=== PATIENT | female | born 1985 | race Caucasian/White ===

== ENCOUNTER 2023-07-06 06:09 | Emergency (ER) | payer OTHER ==
[2023-07-06 06:17] VITALS: TEMP 97.3
--- NOTE | 2023-07-06 06:35 | ERPHSYRPT ---
- History of Present Illness Time Seen by Provider: 07/06/23 06:27 Source: patient Exam Limitations: no limitations Patient Subjective Stated Complaint: left earache Triage Nursing Assessment: pt ambulated into ER without diff, with 2L n/c on that she wears all the time. Pt c/o left ear pain which started on 07/04/23. Left ear canal is red, pt c/o that the pain shoots down the left side of her neck and it hurts to swallow or chew. Physician History: Pt c/o left earache since 2 days ago; denies fever, vomiting, sore throat, runny nose. Allergies/Adverse Reactions: lamotrigine [From Lamictal] Adverse Reaction (Intermediate, Verified 07/06/23 06:25) Home Medications: Albuterol 8 gm Mdi Hfa [Ventolin Hfa MDI] 1 puff IH Q4H PRN PRN 07/06/23 [History] Aripiprazole 10 mg [Abilify 10 MG] 10 mg PO HS 07/06/23 [History] Atorvastatin Calcium 80 mg PO HS 07/06/23 [History] Duloxetine HCl 120 mg PO HS 07/06/23 [History] Furosemide [Lasix] 40 mg PO HS 07/06/23 [History] Gabapentin [Neurontin] 300 mg PO HS 07/06/23 [History] Levocetirizine Dihydrochloride 5 mg PO HS 07/06/23 [History] Metformin HCl 500 mg [Glucophage 500 MG] 1,000 mg PO HS 07/06/23 [History] Montelukast Sodium [Singulair] 1 tab PO HS 07/06/23 [History] atenoloL [Atenolol] 25 mg PO HS 07/06/23 [History] Hx Tetanus, Diphtheria Vaccination/Date Given: Yes Hx Influenza Vaccination/Date Given: Yes Hx Pneumococcal Vaccination/Date Given: No Immunizations Up to Date: Yes Travel Risk - International Travel Have you traveled outside of the country in past 3 weeks: No - Coronavirus Screening Are you exhibiting any of the following symptoms?: No Close contact with a COVID-19 positive Pt in past 14-21 Days: No - Vaccine Status Have you recieved a Covid-19 vaccination: Yes 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 - Review of Systems Constitutional: No Fever Ears, Nose, & Throat: Ear Pain, No Nose Discharge, No Throat Pain Abdominal/Gastrointestinal: No Vomiting - Past Medical History Pertinent Past Medical History: Yes Neurological History: Peripheral Neuropathy ENT History: No Pertinent History Cardiac History: High Cholesterol Respiratory History: Asthma, COPD Endocrine Medical History: Diabetes Type II Musculoskeletal History: Fractures History: No Pertinent History Psycho-Social History: Anxiety, Depression Female Reproductive Disorders: No Pertinent History Other Medical History: wear 2L n/c at home at all times. - Past Surgical History Past Surgical History: Yes Neuro Surgical History: No Pertinent History Cardiac: No Pertinent History Respiratory: No Pertinent History Gastrointestinal: Appendectomy Genitourinary: Other Musculoskeletal: Other Female Surgical History: Dilation & Curettage, Section, Tubal Ligation Other Surgical History: bladder mesh. carpal tunnel x4 - Social History Smoking Status: Former smoker Exposure to second hand smoke: Yes Drug Use: none Patient Lives Alone: No - Female History Hx Last Menstrual Period: 06/11/23 Hx Now: No - Nursing Vital Signs Nursing Vital Signs: Initial Vital Signs Temperature 97.3 F 07/06/23 06:14 Pulse Rate 83 07/06/23 06:14 Respiratory Rate 22 07/06/23 06:14 Blood Pressure 120/81 07/06/23 06:14 O2 Sat by Pulse Oximetry 96 07/06/23 06:14 Pain Scale Pain Intensity 8 - Physical Exam General Appearance: alert Eye Exam: bilateral eye: PERRL Ear Exam: left ear: swelling (left EAC mildly edematous and tender), bilateral ear: TM normal Nasal Exam: No discharge Throat Exam: pharynx normal Neck Exam: normal inspection Cardiovascular/Respiratory Exam: normal breath sounds, heart sounds normal Skin Exam: warm, dry SpO2 Interpretation: normal SpO2: 96 O2 Delivery: Room Air - Course Nursing assessment & vital signs reviewed: Yes Ordered Tests: Medication Summary Generic Name Dose Route Start Last Admin Trade Name Freq PRN Reason Stop Dose Admin Hydrocodone Bitart/Acetaminophen 2 tab 07/06/23 06:47 Hydrocodone/Apap 5/325 1 Tab Tablet PO 07/06/23 06:48 STAT ONE Hydrocodone Bitart/Acetaminophen 2 tab 07/06/23 06:47 Hydrocodone/Apap 5/325 1 Tab Tablet PO 07/06/23 06:48 SENT HOME W/ PATIENT ONE Neomycin/Polymyxin/Hydrocortisone 0 ml 07/06/23 10:00 07/06/23 06:41 Neomy Sulf/Polymyx B Sulf/Hc 10 Ml Otic Suspension OT 08/05/23 09:59 10 ml BID ROSA Administration - Progress Progress Note: 07/06/23 06:54 Ear wick placed in the left EAC without difficulty. Counseled pt/family regarding: diagnosis, need for follow-up - Departure Departure Disposition: Home Clinical Impression: External otitis of left ear Condition: Stable Critical Care Time: No Referrals: ZEB MUÑOZ PA [Primary Care Provider] - Follow up/PCP as directed Instructions: Outer Ear Infection (DC) Additional Instructions: Follow up with private doctor tomorrow. Place 4 drops of cortisporin in left ear twice daily for the next 10 days. Take ibuprofen or tylenol as needed for pain.
[2023-07-06] MEDS ORDERED: CORTISPORIN EAR DROPS 10 ML SUSPENSION OT ONE (06:40)
[2023-07-06] MEDS ORDERED: NORCO 5/325 MG PO ONE ×2 (06:47)
[2023-07-06] MEDS ORDERED: NORCO 5/325 MG ONE (06:51)
[2023-07-06 07:01] VITALS: BP 106/81; PULSE 85; RESP 20; O2SAT 97
[2023-07-06] MEDS ORDERED: CORTISPORIN EAR DROPS 10 ML SUSPENSION OT SCH (10:00)
== END 2023-07-06 07:09 | disposition home or self-care (01) ==
LOC: ED 06:09
DX: H60.92 Unspecified otitis externa, left ear (principal); H92.02 Otalgia, left ear; E78.5 Hyperlipidemia, unspecified; E11.42 Type 2 diabetes mellitus with diabetic polyneuropathy; Z79.84 Long term (current) use of oral hypoglycemic drugs; Z79.899 Other long term (current) drug therapy
CPT/HCPCS: 99281; A9270-GY

== ENCOUNTER 2024-07-20 10:03 | Emergency (ER) | payer OTHER ==
[2024-07-20 10:28] VITALS: RESP 18; TEMP 98; O2SAT 96
[2024-07-20 13:20] VITALS: BP 100/83; PULSE 105
[2024-07-20] MEDS ORDERED: ROCEPHIN 2 GM/100 ML NACL 2 GM/100 ML IVPB IV ONE (13:23)
[2024-07-20] MEDS: ROCEPHIN 2 GM/100 ML NACL 2 GM/100 ML IVPB IV ONE (13:25)
[2024-07-20] MEDS: DAPTOmycin 600 MG in Sodium Chloride Flush 30 ML*** 12 ML IV ONE (14:12)
--- NOTE | 2024-07-20 14:41 | ERPHSYRPT ---
- History of Present Illness Time Seen by Provider: 07/20/24 10:43 Source: patient Exam Limitations: no limitations Patient Subjective Stated Complaint: "I HAVE AN INFECTION IN LEFT FOOT, SEEING DR. CARUSO FOR THAT. I HAD A PICC LINE PLACED WEDNESDAY HERE FOR IV ANTIBIOTICS. I WOKE UP THIS MORNING AND MY PICC LINE WAS PULLED OUT SOME, MYDRESSING HAD PULLED DOWN. I CALLED DR. CARUSO AND HE SAID TO COME HERE AND HAVE IT CHECKED". Triage Nursing Assessment: PT. PRESENTS TO ER A&OX4, SKIN P/W/D, WOUND HEALING SANDAL ON LEFT FOOT, PICC LINE IN RT. UPPER ARM, DRESSING LOOSE, CATHETER IS PULLED OUT SLIGHTLY. RESP EVEN UNLABORED. AMBULATED TO ROOM WITHOUT DIFFICULTY. IN NAD Physician History: 38-year-old female presented in the ER with left toe infection for which she is getting daptomycin and ceftriaxone at home through PICC line placed earlier this week. Patient presented in the ER after she accidentally pulled out half of her PICC line. Patient denies any chest pain, difficulty breathing, bleeding at the insertion site. Lungs clear to auscultation. Not in any distress. I have called infusion center and they have set up time for PICC line placement outpatient tomorrow at 10 AM which patient is advised to keep appointment. She is given her routine daily dose of daptomycin and ceftriaxone. PICC line is pulled out and patient remained asymptomatic. Rec outpatient follow-up. Discussed signs symptoms of worsening needing return to ER which she seems understanding. Stable for discharge. Allergies/Adverse Reactions: lamotrigine [From Lamictal] Adverse Reaction (Intermediate, Verified 07/06/23 06:25) Home Medications: Albuterol 8 gm Mdi Hfa [Ventolin Hfa MDI] 1 puff IH Q4H PRN PRN 07/06/23 [History] Aripiprazole 10 mg [Abilify 10 MG] 5 mg PO HS 07/06/23 [History] Atorvastatin Calcium 80 mg PO HS 07/06/23 [History] Duloxetine HCl 120 mg PO HS 07/06/23 [History] Furosemide [Lasix] 10 mg PO HS 07/06/23 [History] Gabapentin [Neurontin] 600 mg PO HS 07/06/23 [History] Levocetirizine Dihydrochloride 5 mg PO HS 07/06/23 [History] Metformin HCl 500 mg [Glucophage 500 MG] 1,000 mg PO HS 07/06/23 [History] Montelukast Sodium [Singulair] 10 mg PO HS 07/06/23 [History] atenoloL [Atenolol] 25 mg PO HS 07/06/23 [History] Buspirone HCl 5 mg [Buspar 5 mg] 5 mg PO DAILY 07/17/24 [History] Hydroxyzine HCl 25 mg [Atarax 25 mg] 50 mg PO Q6H PRN PRN 07/17/24 [History] Ondansetron [Ondansetron Odt ] 4 mg PO UD PRN 07/17/24 [History] Zolpidem Tartrate 10 mg [Ambien 10 MG] 10 mg PO HS 07/17/24 [History] Ceftriaxone Sodium [Rocephin 2 gm/100 ml NaCl] 2 gm IV DAILY 07/20/24 [History] DAPTOmycin in 0.9 % sod chlor [Daptomycin 500 mg/50 ml-Ns Bag] 600 mg IV DAILY 07/20/24 [History] Hx Tetanus, Diphtheria Vaccination/Date Given: Yes (06/12/24) Hx Influenza Vaccination/Date Given: Yes Hx Pneumococcal Vaccination/Date Given: Yes Immunizations Up to Date: Yes Travel Risk - International Travel Have you traveled outside of the country in past 3 weeks: No - Emerging Infectious Disease Are you exhibiting symptoms associated with any current EIDs: No - Review of Systems Constitutional: No Symptoms Ears, Nose, & Throat: No Symptoms Respiratory: No Symptoms Cardiac: No Symptoms Abdominal/Gastrointestinal: No Symptoms Musculoskeletal: Injury Skin: Skin Lesions Neurological: No Symptoms - Past Medical History Pertinent Past Medical History: Yes Neurological History: Peripheral Neuropathy ENT History: No Pertinent History Cardiac History: Arrhythmia, High Cholesterol Respiratory History: Asthma, COPD Endocrine Medical History: Diabetes Type II Musculoskeletal History: Fractures GI Medical History: GERD History: No Pertinent History Psycho-Social History: Anxiety, Depression Female Reproductive Disorders: No Pertinent History Other Medical History: wear 2L n/c at home at all times. hx tachycardia - Past Surgical History Past Surgical History: Yes Neuro Surgical History: No Pertinent History Cardiac: No Pertinent History Respiratory: No Pertinent History Gastrointestinal: Appendectomy Genitourinary: Other Musculoskeletal: Other Female Surgical History: Dilation & Curettage, Section, Tubal Ligation Other Surgical History: bladder mesh. carpal tunnel x4 - Female History Hx Last Menstrual Period: 06/30/24 Hx Now: No - Social History Smoking Status: Former smoker Exposure to second hand smoke: Yes Drug Use: none Patient Lives Alone: No - Social Determinants of Health Will the patient participate in the screening: Yes Do you worry about a steady place to live?: No Do you have any problems with any of the following?: No known problems In the past 12 months,have you had to go without utilities?: No Transportation Issues: No Has anyone in your support network made you feel unsafe?: No Have you or anyone in your house had to go without enough: No - Nursing Vital Signs Nursing Vital Signs: Initial Vital Signs Temperature 98.0 F 07/20/24 10:18 Pulse Rate 120 H 07/20/24 10:18 Respiratory Rate 18 07/20/24 10:18 Blood Pressure 108/86 07/20/24 10:18 O2 Sat by Pulse Oximetry 96 07/20/24 10:18 Pain Scale Pain Intensity 0 - Physical Exam General Appearance: no apparent distress Eye Exam: PERRL/EOMI Neck Exam: normal inspection, full range of motion Respiratory Exam: normal breath sounds, lungs clear Cardiovascular Exam: regular rate/rhythm, normal heart sounds Gastrointestinal/Abdomen Exam: soft, normal bowel sounds, No tenderness Extremity Exam: normal range of motion, other (Left foot in a splint) Neurologic Exam: alert, oriented x 3, cooperative Skin Exam: normal color SpO2 Interpretation: O2 applied SpO2: 96 O2 Delivery: Nasal Cannula Ordered Tests: Medication Summary Discontinued Medications Generic Name Dose Route Start Last Admin Trade Name Freq PRN Reason Stop Dose Admin Ceftriaxone Sodium 2 gm in 100 mls @ 200 mls/hr 07/20/24 13:18 07/20/24 14:05 Rocephin 2 Gm/100 Ml Nacl IV 07/20/24 13:47 Infused STAT ONE Infusion Daptomycin 600 mg/ Sodium 12 mls @ 5 mls/min 07/20/24 13:30 07/20/24 14:12 Chloride IV 07/20/24 13:32 5 mls/min NOW ONE Administration Ceftriaxone Sodium Confirm 07/20/24 13:23 Rocephin 2 Gm/100 Ml Nacl Administered 07/20/24 13:24 Dose 2 gm in 100 mls @ ud IV .STK-MED ONE - Progress Progress: unchanged Progress Note: 07/20/24 14:38 38-year-old female presented in the ER with left toe infection for which she is getting daptomycin and ceftriaxone at home through PICC line placed earlier this week. Patient presented in the ER after she accidentally pulled out half of her PICC line. Patient denies any chest pain, difficulty breathing, bleeding at the insertion site. Lungs clear to auscultation. Not in any distress. I have called infusion center and they have set up time for PICC line placement outpatient tomorrow at 10 AM which patient is advised to keep appointment. She is given her routine daily dose of daptomycin and ceftriaxone. PICC line is pulled out and patient remained asymptomatic. Rec outpatient follow-up. D iscussed signs symptoms of worsening needing return to ER which she seems understanding. Stable for discharge. Counseled pt/family regarding: diagnosis, need for follow-up Medical Desision Making - Independent Historian Additional History obtained from: Spouse - Risk of complications The pt has a mod risk of morbidity or mortality based on: Need for prescription drug management - Departure Departure Disposition: Home Clinical Impression: PICC (peripherally inserted central catheter) removal, Occluded PICC line Condition: Stable Critical Care Time: No Referrals: ZEB MUÑOZ PA [Primary Care Provider] - Follow up with PCP 1 day Instructions: Peripherally inserted central catheter (PICC) removal Additional Instructions: Follow-up with PICC line appointment 10 AM tomorrow morning. Return to ER for swelling of the arm, pain at the PICC line removal site, chest pain palpitations or shortness of breath.
== END 2024-07-20 14:45 | disposition home or self-care (01) ==
LOC: ED 10:03
DX: T82.898A Other specified complication of vascular prosthetic devices, implants and grafts, initial encounter (principal); M86.9 Osteomyelitis, unspecified; E11.42 Type 2 diabetes mellitus with diabetic polyneuropathy; E78.5 Hyperlipidemia, unspecified; Z79.84 Long term (current) use of oral hypoglycemic drugs; Z79.899 Other long term (current) drug therapy; Z99.81 Dependence on supplemental oxygen
CPT/HCPCS: 96365; 96374; 96375; 99284; J0696; J0878

== ENCOUNTER 2024-07-26 15:22 | Emergency (ER) | payer OTHER ==
--- NOTE | 2024-07-26 15:37 | ERPHSYRPT ---
- History of Present Illness Time Seen by Provider: 07/26/24 15:37 Source: patient, family Exam Limitations: no limitations Physician History: This is a 38-year-old white female patient who is obese and has a history of hypertension, asthma and hyperlipidemia and presents to the emergency department accompanied by her significant other secondary to red papular rashes that arose yesterday. Patient is on intravenous daptomycin and Rocephin to treat left foot bony infection. She has not had a fever. The rash itches more than anything. However when she does scratch it does send some shooting pains distal to her feet. Timing/Duration: yesterday Quality: burning, itchy Severity: mild Location: extremities (Bilateral calves but lateral in location) Possible Causes: no cause identified Associated Symptoms: change in skin texture Allergies/Adverse Reactions: lamotrigine [From Lamictal] Adverse Reaction (Intermediate, Verified 07/21/24 09:50) Home Medications: Albuterol 8 gm Mdi Hfa [Ventolin Hfa MDI] 1 puff IH Q4H PRN PRN 07/06/23 [History] Aripiprazole 10 mg [Abilify 10 MG] 5 mg PO HS 07/06/23 [History] Atorvastatin Calcium 80 mg PO HS 07/06/23 [History] Duloxetine HCl 120 mg PO HS 07/06/23 [History] Furosemide [Lasix] 10 mg PO HS 07/06/23 [History] Gabapentin [Neurontin] 600 mg PO HS 07/06/23 [History] Levocetirizine Dihydrochloride 5 mg PO HS 07/06/23 [History] Metformin HCl 500 mg [Glucophage 500 MG] 1,000 mg PO HS 07/06/23 [History] Montelukast Sodium [Singulair] 10 mg PO HS 07/06/23 [History] atenoloL [Atenolol] 25 mg PO HS 07/06/23 [History] Buspirone HCl 5 mg [Buspar 5 mg] 5 mg PO DAILY 07/17/24 [History] Hydroxyzine HCl 25 mg [Atarax 25 mg] 50 mg PO Q6H PRN PRN 07/17/24 [History] Ondansetron [Ondansetron Odt ] 4 mg PO UD PRN 07/17/24 [History] Zolpidem Tartrate 10 mg [Ambien 10 MG] 10 mg PO HS 07/17/24 [History] Ceftriaxone Sodium [Rocephin 2 gm/100 ml NaCl] 2 gm IV DAILY 07/20/24 [History] DAPTOmycin in 0.9 % sod chlor [Daptomycin 500 mg/50 ml-Ns Bag] 600 mg IV DAILY 07/20/24 [History] Hx Tetanus, Diphtheria Vaccination/Date Given: Yes (06/12/24) Hx Influenza Vaccination/Date Given: Yes Hx Pneumococcal Vaccination/Date Given: Yes Travel Risk - International Travel Have you traveled outside of the country in past 3 weeks: No - Emerging Infectious Disease Are you exhibiting symptoms associated with any current EIDs: No - Review of Systems Constitutional: No Symptoms Eyes: No Symptoms Ears, Nose, & Throat: No Symptoms Respiratory: No Symptoms Cardiac: No Symptoms Abdominal/Gastrointestinal: No Symptoms Genitourinary Symptoms: No Symptoms Musculoskeletal: No Symptoms Skin: Pruritis, Rash Neurological: No Symptoms Psychological: No Symptoms Endocrine: No Symptoms Hematologic/Lymphatic: No Symptoms Immunological/Allergic: No Symptoms All Other Systems: Reviewed and Negative - Past Medical History Pertinent Past Medical History: Yes Neurological History: Peripheral Neuropathy ENT History: No Pertinent History Cardiac History: Arrhythmia, High Cholesterol Respiratory History: Asthma, COPD Endocrine Medical History: Diabetes Type II Musculoskeletal History: Fractures GI Medical History: GERD History: No Pertinent History Psycho-Social History: Anxiety, Depression Female Reproductive Disorders: No Pertinent History Other Medical History: wear 2L n/c at home at all times. hx tachycardia - Past Surgical History Past Surgical History: Yes Neuro Surgical History: No Pertinent History Cardiac: No Pertinent History Respiratory: No Pertinent History Gastrointestinal: Appendectomy Genitourinary: Other Musculoskeletal: Other Female Surgical History: Dilation & Curettage, Section, Tubal Ligation Other Surgical History: bladder mesh. carpal tunnel x4 - Female History Hx Last Menstrual Period: 06/30/24 - Social History Smoking Status: Former smoker Exposure to second hand smoke: Yes Drug Use: none Patient Lives Alone: No - Social Determinants of Health Will the patient participate in the screening: Yes Do you worry about a steady place to live?: No In the past 12 months,have you had to go without utilities?: No Transportation Issues: No Has anyone in your support network made you feel unsafe?: No Have you or anyone in your house had to go without enough: No - Nursing Vital Signs Nursing Vital Signs: Initial Vital Signs Temperature 97.0 F 07/26/24 15:53 Pulse Rate 125 H 07/26/24 15:53 Respiratory Rate 18 07/26/24 15:53 Blood Pressure 135/89 07/26/24 15:53 O2 Sat by Pulse Oximetry 99 07/26/24 15:53 Pain Scale Pain Intensity 0 - Course Nursing assessment & vital signs reviewed: Yes Ordered Tests: Medication Summary Discontinued Medications Generic Name Dose Route Start Last Admin Trade Name Freq PRN Reason Stop Dose Admin Diphenhydramine HCl 25 mg 07/26/24 16:06 Diphenhydramine Hcl 25 Mg Capsule PO 07/26/24 16:07 STAT ONE Diphenhydramine HCl Confirm 07/26/24 16:13 Diphenhydramine Hcl 25 Mg Capsule Administered 07/26/24 16:14 Dose 25 mg .ROUTE .STK-MED ONE Famotidine 40 mg 07/26/24 16:06 Famotidine 20 Mg Tablet PO 07/26/24 16:07 STAT ONE Famotidine Confirm 07/26/24 16:13 Famotidine 20 Mg Tablet Administered 07/26/24 16:14 Dose 40 mg .ROUTE .STK-MED ONE Prednisone 20 mg 07/26/24 16:06 Prednisone 20 Mg Tablet PO 07/26/24 16:07 STAT ONE Prednisone Confirm 07/26/24 16:13 Prednisone 20 Mg Tablet Administered 07/26/24 16:14 Dose 20 mg .ROUTE .STK-MED ONE - Progress Progress: unchanged Progress Note: 07/26/24 16:18 My medical decision making and the assignment of low complexity is based upon patient's past medical history, review of the patient's medication list, review the patient medication allergy list, history present illness and physical findings on examination. The workup does not require any laboratory radiographic studies. We will provide the patient with a dose of prednisone 20 mg, oral Benadryl and oral Pepcid. Differential diagnosis includes but is not limited to contact dermatitis, medication/drug side effect and less likely shingles. We will have the patient contact her prescribing provider to discuss the continued use of daptomycin. This medication can cause pruritus and a rash. We will have the patient return tomorrow at noon for reassessment. Counseled pt/family regarding: diagnosis, need for follow-up Medical Desision Making - Independent Historian Additional History obtained from: Spouse - Diagnostic Testing Diagnostic test were ordered, analyzed, and reviewed by me: No - Risk of complications The pt has a mod risk of morbidity or mortality based on: Need for prescription drug management - Departure Departure Disposition: Home Clinical Impression: Contact dermatitis Condition: Stable Critical Care Time: No Referrals: ZEB MUÑOZ PA [Primary Care Provider] - Follow up/PCP as directed Additional Instructions: Contact your prescribing provider today, 07/26/2024, to make certain they want to continue the daptomycin as that is a possibility of the cause of your rash and itching. Return to the emergency department tomorrow at noon, 07/19/2024, for reevaluation. If you are unable to contact your prescribing provider, make sure that you discussed with the infusion center, before your next daptomycin dose, that you are prescribing provider wants you to continue the daptomycin kno wing you have that itching rash present. Continue your hydroxyzine as prescribed Prescriptions: Prednisone 10 mg [Deltasone 10 mg] 10 mg PO TID #12 tablet Famotidine 20 mg [Pepcid 20 MG] 20 mg PO DAILY #5 tablet
[2024-07-26 15:59] VITALS: RESP 18; TEMP 97
[2024-07-26] MEDS ORDERED: DELTASONE 20 MG ONE (16:13)
[2024-07-26] MEDS ORDERED: BENADRYL 25 MG CAPSULE ONE (16:13)
[2024-07-26] MEDS ORDERED: Pepcid 20 MG ONE (16:13)
[2024-07-26] MEDS: Pepcid 20 MG PO ONE (16:15)
[2024-07-26] MEDS: DELTASONE 20 MG PO ONE (16:15)
[2024-07-26] MEDS: BENADRYL 25 MG CAPSULE PO ONE (16:15)
[2024-07-26 16:42] VITALS: BP 128/58; PULSE 116; O2SAT 100
== END 2024-07-26 16:42 | disposition home or self-care (01) ==
LOC: ED 15:22
DX: L25.9 Unspecified contact dermatitis, unspecified cause (principal); I10 Essential (primary) hypertension; E78.5 Hyperlipidemia, unspecified; E11.42 Type 2 diabetes mellitus with diabetic polyneuropathy; Z79.52 Long term (current) use of systemic steroids; Z79.84 Long term (current) use of oral hypoglycemic drugs; Z79.899 Other long term (current) drug therapy
CPT/HCPCS: 99282; 99283; A9270-GY